=== PATIENT | male | born 1970 | race Caucasian/White ===

== ENCOUNTER 2017-06-30 02:28 | Emergency (ER) | payer SELFPAY ==
[~2017-06-30] VITALS: Ht 180.3 cm; Wt 104.3 kg
--- NOTE | ~2017-06-30 | EKG ---
PATIENT: JOYCELYN CURRY UNIT #: [id number] Ventricular Rate: 104 BPM Atrial Rate: 104 BPM P-R Interval: 168 ms QRS Duration: 86 ms Q-T Interval: 348 ms QTC Calculation(Bezet): 457 ms P [place]: 21 degrees Calculated R [place]: 41 degrees Calculated T [place]: 42 degrees Diagnosis Line: Sinus tachycardia Diagnosis Line: Nonspecific T wave abnormality Diagnosis Line: Abnormal ECG Diagnosis Line: No previous ECGs available Diagnosis Line: Confirmed by DOROTHEA BEST MD ([id number]) on Diagnosis Line: 07/08/2017 9:57:00 PM INTERPRETING MD: [email or web address]
[~2017-06-30 02:28] MED LIST: ALPRAZOLAM PO; CLEOCIN PO; DAKIN'S MODIF1000 ML EXT; GLUCOPHAGE XR500 MG PO; HYDROCHLOROTHIA25 MG PO; IBUPROFEN800 MG PO; LISINOPRIL PO; LORTAB 5/500 TA1 TA2 PO; METFORMIN HCL500 M1 PO; METOPROLOL SUC100 MG PO; OPANA PO; PERCOCET5/325 PO; PERIDEX480 ML PO; TOPAMAX PO; ULTRAM PO
[2017-06-30] MEDS ORDERED: NO MEDICATIONS (02:38)
[2017-06-30 02:56] LABS: BASOPHIL# 0.1 X10e3 (0-0.3); BASOPHIL% 0.7 % (0-2.5); EOSINOPHIL# 0.1 X10e3 (0-0.7); EOSINOPHIL% 0.7 % (0.0-7.0); HEMATOCRIT 42.7 % (38.0-50.0); HEMOGLOBIN 14.7 gm/dL (13.0-16.0); LYMPHOCYTE# 1.6 X10e3 (1.0-3.5); LYMPHOCYTE% 20.7 % (17.0-45.0); MEAN CELL VOLUME 86.3 FL (83-96); MEAN CORPUSCULAR HEMOGLOBIN 29.7 PG (28-34); MEAN CORPUSCULAR HGB CONC 34.5 g/dL (30-36); MEAN PLATELET VOLUME 9.2 FL (6.5-11.5); MONOCYTE# 0.5 X10e3 (0-1.0); MONOCYTE% 6.4 % (3.0-12.0); NEUTROPHIL# 5.6 X10e3 (1.5-7.1); NEUTROPHIL% 71.5 % (40-75); PLATELET COUNT 146 X10e3 (140-420); RED BLOOD COUNT 4.95 X10e (3.90-5.60); RED CELL DISTRIBUTION WIDTH 13.7 % (11.0-15.5); WHITE BLOOD COUNT 7.8 X10e3 (4.0-10.5)
[2017-06-30 02:57] LABS: DIFF IND NO
[2017-06-30 03:05] LABS: ALBUMIN SERUM 4.5 g/dL (3.5-5.0); BILIRUBIN, DIRECT 0.1 mg/dL (0.0-0.2); BILIRUBIN,INDIRECT 0.5 mg/dL (0.0-0.9); BILIRUBIN,TOTAL 0.6 mg/dL (0.2-2.0); CALCIUM SERUM 8.9 mg/dL (8.4-10.2); GLOM FILT RATE Estimated 88.6 mL/min (>60); POTASSIUM 3.6 mmol/L (3.5-5.1); PROTEIN TOTAL SERUM 7.9 g/dL (6.0-8.3)
== END 2017-06-30 03:43 | disposition home or self-care (01) ==
LOC: SED 02:28
PROVIDERS: Emergency Medicine
DX: T40.1X1A Poisoning by heroin, accidental (unintentional), initial encounter (principal); E11.65 Type 2 diabetes mellitus with hyperglycemia; Z88.0 Allergy status to penicillin
CPT/HCPCS: 36415; 80048; 80076; 85025; 93005; 99284